=== PATIENT | male | born 1980 | race Caucasian/White ===

== ENCOUNTER 2021-04-04 12:53 | Day surgery (SDC) | payer BC ==
[2021-04-02 09:26] VITALS: BMI 36.8
[~2021-04-04 12:53] MED LIST: ACETAMINOPHEN TAB 500 MG TAB PO STA; GABAPENTIN 300 MG CAP PO STA; HEPARIN SODIUM,PORCINE/PF 5,000 UNIT/0.5 ML SYRINGE SQ PRN; MELOXICAM 7.5 MG TAB PO SCH
[2021-04-04] MEDS ORDERED: LACTATED RINGERS 1,000 ML IV SCH (13:12)
[2021-04-04] MEDS ORDERED: HYDROmorphone 0.5 MG/0.5 ML SYRINGE IVP PRN (13:12)
[2021-04-04] MEDS ORDERED: ONDANSETRON 4 MG/2 ML VIAL IVP ONE (13:12)
[2021-04-04] MEDS ORDERED: DEXAMETHASONE SOD PHOSPHATE 4 MG/ML 1 ML VIAL IV ONE (13:12)
[2021-04-04 14:00] LABS: Glucose,Whole Blood 87 mg/dL (75-99)
[2021-04-04 14:04] LABS: Basophils % (A) 1 %; Eosinophils # (A) 0.3 k/uL (0-0.7); Eosinophils % (A) 5 %; HCT 44.7 % (39.0-53.0); Lymphocytes # (A) 1.8 k/uL (1.0-4.8); Lymphocytes % (A) 27 %; MCH 29.4 pg (25.0-35.0); MCHC 33.5 g/dL (31.0-37.0); MCV 87.8 fL (80.0-100.0); Mean Platelet Volume 7.4; Monocytes # (A) 0.4 k/uL (0-1.0); Monocytes % (A) 5 %; Neutrophils # (A) 4.2 k/uL (1.3-7.7); Neutrophils % (A) 61 %; Platelet Count 228 k/uL (150-450); RBC 5.09 m/uL (4.30-5.90); RDW 11.9 % (11.5-15.5); WBC 6.9 k/uL (3.8-10.6)
[2021-04-04 14:17] LABS: ALT 69 U/L (4-49); African American GFR (CKD) >90 (>60 ml/min/1.73 sqM); Albumin 4.6 g/dL (3.5-5.0); Anion Gap 8 mmol/L; Blood Urea Nitrogen 15 mg/dL (9-20); Calcium 9.5 mg/dL (8.4-10.2); Carbon Dioxide 26 mmol/L (22-30); Chloride 105 mmol/L (98-107); Glucose 92 mg/dL (74-99); Non-African American GFR(CKD) >90 (>60 ml/min/1.73 sqM); Sodium 139 mmol/L (137-145); Total Protein 7.7 g/dL (6.3-8.2)
[2021-04-04 14:19] LABS: Potassium 5.2 mmol/L (3.5-5.1)
[2021-04-04 14:20] LABS: AST 47 U/L (17-59); Alkaline Phosphatase 67 U/L (38-126)
[2021-04-04] MEDS ORDERED: MIDAZOLAM 2 MG/2 ML VIAL IVP ONE (14:33)
[2021-04-04] MEDS ORDERED: TAMSULOSIN 0.4 MG CAP.ER.24H PO ONE (16:27)
[2021-04-04] MEDS ORDERED: TAMSULOSIN 0.4 MG CAP.ER.24H PO STA (16:28)
--- NOTE | 2021-04-04 16:28 | P.GSHP ---
History of Present Illness H&P Date: 04/04/21 CHIEF COMPLAINT: Ventral hernia HISTORY OF PRESENT ILLNESS: The patient is a 40-year-old male who presents with a history of swelling and pain along the umbilicus from a hernia for over 1 month. Now he presents for surgical intervention. PAST MEDICAL HISTORY: Please see list. PAST SURGICAL HISTORY: Please see list. MEDICATIONS: Please see list. ALLERGIES: Please see list. SOCIAL HISTORY: No illicit drug use FAMILY HISTORY: No reports of Crohn disease or ulcerative colitis. REVIEW OF ORGAN SYSTEMS: CONSTITUTIONAL: No reports of fevers or chills. No reports of weight loss despite prior attempts. GI: Denies any blood in stools or constipation. PHYSICAL EXAM: VITAL SIGNS: Stable GENERAL: Well-developed pleasant male in no acute distress. HEENT: No scleral icterus. Extraocular movements grossly intact. Moist buccal mucosa. NECK: Supple without lymphadenopathy. CHEST: Unlabored respirations. Equal bilateral excursions. CARDIOVASCULAR: Regular rate and rhythm. Distal 2+ pulses. ABDOMEN: Soft, nondistended. Palpable defect of the abdomen at umbilicus over 3 cm. No peritoneal signs. MUSCULOSKELETAL: No clubbing, cyanosis, or edema. ASSESSMENT: 1. Ventral hernia PLAN: 1. Recommend proceeding with robotic ventral hernia repair with mesh. 2. Benefits and risks of surgical intervention was discussed including possibility of open technique. 3. DVT prophylaxis. 4. Antibiotic prophylaxis. 5. Non necrotic pain management including abdominal wall blocks described Past Medical History Past Medical History: GERD/Reflux, Hyperlipidemia Additional Past Medical History / Comment(s): abdominal hernia History of Any Multi-Drug Resistant Organisms: None Reported Past Surgical History: Adenoidectomy, Hernia Repair Additional Past Surgical History / Comment(s): tubes tirso ears,lt inguinal hernia Past Anesthesia/Blood Transfusion Reactions: No Reported Reaction Additional Past Anesthesia/Blood Transfusion Reaction / Comment(s): no hx blood transfusion Smoking Status: Never smoker - Past Family History Mother Family Medical History: No Reported History Medications and Allergies Home Medications Medication Instructions Recorded Confirmed Type Multivitamins, Thera [Multivitamin 1 tab PO DAILY 04/02/21 04/04/21 History (formulary)] Allergies Allergy/AdvReac Type Severity Reaction Status Date / Time No Known Allergies Allergy Verified 04/04/21 13:14 Surgical - Exam Vital Signs Temp Pulse Resp BP Pulse Ox 97.8 F 81 18 128/83 99 04/04/21 13:28 04/04/21 13:28 04/04/21 13:28 04/04/21 13:28 04/04/21 13:28 Results - Labs 04/04/21 13:50 04/04/21 13:50 Abnormal Lab Results - Last 24 Hours (Table) 04/04/21 Range/Units 13:50 Potassium 5.2 H (3.5-5.1) mmol/L ALT 69 H (4-49) U/L Diabetes panel 04/04/21 Range/Units 13:50 Sodium 139 (137-145) mmol/L Potassium 5.2 H (3.5-5.1) mmol/L Chloride 105 (98-107) mmol/L Carbon Dioxide 26 (22-30) mmol/L BUN 15 (9-20) mg/dL Creatinine 0.79 (0.66-1.25) mg/dL Glucose 92 (74-99) mg/dL Calcium 9.5 (8.4-10.2) mg/dL AST 47 (17-59) U/L ALT 69 H (4-49) U/L Alkaline Phosphatase 67 (38-126) U/L Total Protein 7.7 (6.3-8.2) g/dL Albumin 4.6 (3.5-5.0) g/dL Calcium panel 04/04/21 Range/Units 13:50 Calcium 9.5 (8.4-10.2) mg/dL Albumin 4.6 (3.5-5.0) g/dL Pituitary panel 04/04/21 Range/Units 13:50 Sodium 139 (137-145) mmol/L Potassium 5.2 H (3.5-5.1) mmol/L Chloride 105 (98-107) mmol/L Carbon Dioxide 26 (22-30) mmol/L BUN 15 (9-20) mg/dL Creatinine 0.79 (0.66-1.25) mg/dL Glucose 92 (74-99) mg/dL Calcium 9.5 (8.4-10.2) mg/dL Adrenal panel 04/04/21 Range/Units 13:50 Sodium 139 (137-145) mmol/L Potassium 5.2 H (3.5-5.1) mmol/L Chloride 105 (98-107) mmol/L Carbon Dioxide 26 (22-30) mmol/L BUN 15 (9-20) mg/dL Creatinine 0.79 (0.66-1.25) mg/dL Glucose 92 (74-99) mg/dL Calcium 9.5 (8.4-10.2) mg/dL Total Bilirubin 1.0 (0.2-1.3) mg/dL AST 47 (17-59) U/L ALT 69 H (4-49) U/L Alkaline Phosphatase 67 (38-126) U/L Total Protein 7.7 (6.3-8.2) g/dL Albumin 4.6 (3.5-5.0) g/dL
[2021-04-04] MEDS ORDERED: HYDROmorphone (PF) 1 MG/ML ONE (16:48)
[2021-04-04] MEDS ORDERED: LIDOCAINE 1% INJ 10MG/ML (20 ML MDV) ONE (16:48)
[2021-04-04] MEDS ORDERED: PROPOFOL 10 MG/ML 20 ML VIAL IV ONE (16:48)
[2021-04-04] MEDS ORDERED: ROCURONIUM 10 MG/ML (5 ML VIAL) IV ONE (16:48)
[2021-04-04] MEDS ORDERED: MIDAZOLAM 2 MG/2 ML VIAL ONE (16:48)
[2021-04-04] MEDS ORDERED: NEOSTIGMINE 1 MG/ML 10 ML VIAL ONE (16:48)
[2021-04-04] MEDS ORDERED: GLYCOPYRROLATE 0.2 MG/ML 2 ML VIAL ONE (16:48)
[2021-04-04] MEDS ORDERED: SUCCINYLCHOLINE CHLORIDE 100 MG/5 ML SYR IV ONE (16:48)
[2021-04-04] MEDS ORDERED: KETOROLAC 15 MG/ML 1 ML VIAL ONE (16:48)
[2021-04-04] MEDS ORDERED: SODIUM CHLORIDE 0.9% (PF) 10 ML VIAL ONE (16:48)
[2021-04-04] MEDS ORDERED: ROPIVACAINE 5 MG/ML 30 ML VIAL ONE (16:48)
[2021-04-04] MEDS ORDERED: fentaNYL (PF) 50 MCG/ML 2 ML AMP ONE (16:48)
[2021-04-04] MEDS ORDERED: BUPIVACAINE (PF) 0.25% 30 ML VIAL SQ ONE (17:16)
[2021-04-04] MEDS ORDERED: LACTATED RINGERS 1,000 ML IV ONE (17:32)
[2021-04-04 18:37] VITALS: TEMP 99.3
--- NOTE | 2021-04-04 18:49 | P.OP ---
Date of Procedure: 04/04/21 Description of Procedure: SURGEON: CATHY PARRA MD PREOPERATIVE DIAGNOSES: 1. Initial epigastric ventral hernia with incarceration 2. Initial incarcerated umbilical hernia POSTOPERATIVE DIAGNOSES: 1. Initial incarcerated umbilical hernia OPERATION: 1. Robotic-assisted [employer] laparoscopic repair of initial incarcerated umbilical hernia with mesh, ventralight ST mesh 11.4 cm Anesthesia: GETA, regional, local Estimated Blood Loss (ml): 5 Pathology: 1. Incarcerated umbilical hernia defect COMPLICATIONS: None. Operative Findings: 1. Umbilical hernia defect 2 x 3 cm 2. Fascia repaired using #1 V-lock suture INDICATIONS: The patient is a 40-year-old male who presents with a personal history of multiple abdominal wall hernias. Surgical intervention with laparoscopic versus robotic and open techniques were reviewed. Placement of mesh was also reviewed. Benefits and risks were thoroughly described. Informed consent was obtained. DESCRIPTION OF PROCEDURE: The patient was brought into the operating room and laid in supine position. After general induction, the abdomen had been prepped and draped in standard sterile fashion. Ioban draping was also placed. Prior to incision, a timeout protocol was confirmed with surgical team regarding the patient's name including procedures to be performed. The robot was primed prior to the procedure. A field block using local anesthetic was placed along hernia site including the proposed port sites. Initial incision was made with an #11 blade along the left upper quadrant. A 0 degree 5 mm laparoscopic trocar entry was performed and insufflated. Three 8 mm ports were placed along the left lateral abdominal wall under direct localization after exchanging the 5-mm for an 8 mm port. Placements of the ports were 15 cm from the target anatomy and 10 cm apart. An accessory 12 mm port was placed at the right upper quadrant for exchange of mesh including sutures. The [employer] robot was previously primed, prepped and draped then docked from the right side of the patient onto the left side of the patient. I then sat at the robot [employer] console where working arms of the robot including Bovie cautery connected to robotic scissors, needle truck driver instructor, and graspers placed by the hospital administrative assistant. Incarcerated omental contents were found along the upper midline defect including umbilicus. The defects were reduced with preperitoneal fat including the falciform ligament at the upper midline defect. Two distinct fascial defects were found: Umbilical hernia defect 2 x 3 cm. The incarcerated contents were reduced as the peritoneal fat was cleaned from the abdominal wall. Next, hemostasis was checked with cautery. The hernia defects were oversewn using #1 nonabsorbable V-lock suture for each defect separately with fascial imbrication x 2. Next, ventralight ST mesh 11.4 cm was placed with the rough side towards the abdominal wall as to cover the epigastric including umbilical defect. 2-0 VLOC 9 inch sutures were used to fixate the mesh. A final endoscopic imaging was obtained. All instruments and pneumoperitoneum were evacuated from the abdominal cavity. The [employer] robot was undocked from the patient. I re-scrubbed into the case for closure of incisions. The fascia of the 12-mm port was probed and less than 8-mm in size. The incisions were reapproximated using 4-0 Monocryl in an interrupted subcuticular fashion. Liquid glue was applied to the skin after cleansing the skin with normal saline and dilute hydrogen peroxide. An abdominal binder was placed. An umbilical dressing was placed prior. At the end of the procedure, needle, sponge, and instrument count had been verified correct by surgical instrument technician. The patient was taken to the postanesthesia care unit in stable condition. Plan - Discharge Summary Discharge Rx Participant: Yes New Discharge Prescriptions: New Tamsulosin [Flomax] 0.4 mg PO DAILY #5 cap Ibuprofen [Motrin] 600 mg PO Q8HR PRN #30 tab PRN Reason: Pain Simethicone [Gas-X] 125 mg PO AC-TID PRN #20 cap PRN Reason: Pain Acetaminophen Tab [Tylenol Tab] 1,000 mg PO Q6HR PRN #30 tablet PRN Reason: Pain Continue Multivitamins, Thera [Multivitamin (formulary)] 1 tab PO DAILY Discharge Medication List Multivitamins, Thera [Multivitamin (formulary)] 1 tab PO DAILY 04/02/21 [History] Acetaminophen Tab [Tylenol Tab] 1,000 mg PO Q6HR PRN #30 tablet 04/04/21 [Rx] Ibuprofen [Motrin] 600 mg PO Q8HR PRN #30 tab 04/04/21 [Rx] Simethicone [Gas-X] 125 mg PO AC-TID PRN #20 cap 04/04/21 [Rx] Tamsulosin [Flomax] 0.4 mg PO DAILY #5 cap 04/04/21 [Rx] Follow up Appointment(s)/Referral(s): Cathy Parra MD [STAFF PHYSICIAN] - 04/16/21 Patient Instructions/Handouts: *Surgery [facility] - Managing Your Pain After Surgery Without Opioids, Laparoscopic Herniorrhaphy (IP), Abdominal Binder (DC), Umbilical Hernia Repair (DC) Activity/Diet/Wound Care/Special Instructions: DO NOT REMOVE UMBILICAL DRESSING. Using antibacterial soap. No lifting over 4 pounds 4 weeks, May 05October shower. No bathtub soaks for 2 weeks, April 18 Wear abdominal binder daily for comfort except for showering. Use ice along incisions for today to prevent swelling. Take tylenol, aleve/ibuprofen, simethicone scheduled for 3 days for best pain relief Discharge Disposition: HOME SELF-CARE
[2021-04-04 19:15] VITALS: RESP 16
[2021-04-04] MEDS ORDERED: ACETAMINOPHEN TAB 500 MG TAB ONE (19:17)
[2021-04-04] MEDS ORDERED: ACETAMINOPHEN TAB 500 MG TAB PO ONE (19:20)
[2021-04-04 19:45] VITALS: BP 113/68; PULSE 87
--- NOTE | 2021-04-04 20:21 | P.ANPRN ---
Procedure Note - Anesthesia - Nerve Block Performed Bilateral Rectus Abdominis Single Time Out Performed: Yes Date of Procedure: 04/04/21 Procedure Start Time: 14:32 Procedure Stop Time: 14:40 Location of Patient: PreOp Indication: Acute Post-Operative Pain, Requested by Surgeon Sedation Type: Sedate with meaningful contact maintained Preparation: Sterile Prep Position: Supine Needle Types: Pajunk Needle Gauge: 21 Ultrasound used to visualize needle placement: Yes Ultrasound used to observe medication spread: Yes Blood Aspirated: No Pain Paresthesia on Injection Noted: No Resistance on Injection: Normal Image Stored and Saved: Yes Events: Uneventful and Well Tolerated (Ropivacaine 0.5% 15 mL plus normal saline 15 mL given bilaterally at L1)
== END 2021-04-04 20:01 | disposition home or self-care (01) ==
LOC: OR 12:53
PROVIDERS: ATTEND Surgery Plastic and Reconstructive Surgery
DX: K43.6 Other and unspecified ventral hernia with obstruction, without gangrene (principal); K42.0 Umbilical hernia with obstruction, without gangrene; K21.9 Gastro-esophageal reflux disease without esophagitis; E78.5 Hyperlipidemia, unspecified; Z98.890 Other specified postprocedural states; Z96.22 Myringotomy tube(s) status
CPT/HCPCS: 49653; S2900; 64999; 80053; 85025; 88302

== ENCOUNTER → 2023-06-10 | Outpatient (CLI) | payer BC ==
--- NOTE | 2023-06-14 12:22 | MR ---
EXAMINATION TYPE: MR shoulder LT wo con DATE OF EXAM: 06/10/2023 COMPARISON: None HISTORY: Left shoulder pain for 5 months. TECHNIQUE: Multiplanar, multisequence imaging of the left shoulder is performed without contrast. FINDINGS: There are moderate acute and chronic changes of the AC joint and a downsloping acromion resulting in mild shoulder impingement. There is a rim rent tear of the supraspinatus tendon. Infraspinatus and subscapularis tendons are int act. Biceps tendon is normal in signal intensity and position within the bicipital groove. The biceps anch or is intact. Grossly the cartilaginous labrum is intact. There is no glenohumeral joint effusion or degenerative change. There is no subacromial or subdeltoid bursitis. IMPRESSION: 1. 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 2. Rim rent tear of the supraspinatus tendon without full-thickness tear or retraction the muscular t endinous junction.
== END | disposition home or self-care (01) ==
LOC: RADMRIMAIN 19:24
PROVIDERS: ATTEND Family Medicine
DX: M75.112 Incomplete rotator cuff tear or rupture of left shoulder, not specified as traumatic (principal); M19.012 Primary osteoarthritis, left shoulder; M25.812 Other specified joint disorders, left shoulder